=== PATIENT | male | born 1980 | race Caucasian/White ===

== ENCOUNTER 2025-03-01 15:28 | Emergency (ER) | payer OTHER ==
[~2025-03-01] VITALS: Ht 172.7 cm; Wt 68.0 kg
[2025-03-01 15:50] VITALS: BP 127/74; TEMP 97.9
[2025-03-01] MEDS ORDERED: ALPR0.25 PO (16:00)
[2025-03-01 16:10] VITALS: O2SAT 98
== END 2025-03-01 16:11 | disposition home or self-care (01) ==
LOC: ER 15:45
DX: F41.9 Anxiety disorder, unspecified (principal); Z76.0 Encounter for issue of repeat prescription